=== PATIENT | female | born 1960 | race American Indian/Alaskan Native ===

== ENCOUNTER 2017-10-01 23:27 | Emergency (ER) | payer BC ==
--- NOTE | 2017-10-02 00:36 | XRay Report ---
FINAL REPORT PROCEDURE: XR NECK SOFT TISSUE TECHNIQUE: Soft tissue neck radiographs, 2 views, including AP and lateral. CPT 59023 HISTORY: Pain. Fishbone lodged in throat. COMPARISON: No prior studies are available for comparison. FINDINGS: Bone mineralization: Normal. Multilevel degenerative changes of the spine. Alignment: Normal. Soft tissues: Epiglottis and hypopharyngeal soft tissues normal. Foreign bodies: None. IMPRESSION: No radiographic evidence of acute abnormality. No radiopaque foreign body. Please note some foreign bodies are not radiopaque and therefore not visualized on radiograph.
--- NOTE | 2017-10-02 09:24 | Emergency Department Report ---
- General Chief complaint: Skin/Abscess/Foreign Body Stated complaint: FISH BONE IN THROAT Time Seen by Provider: 10/02/17 09:09 Source: patient Mode of arrival: Ambulatory Limitations: No Limitations - History of Present Illness Initial comments: Ms Sal is a 57 year-old woman without PMH who presents after swallowing fish bone. Last night eating seabass around 11pm. Accidentally swallowed a bone. Able to swallow, but has pain. No vomiting. No difficulty speaking. No other complaints. No home meds. No allergies. MD complaint: foreign body Onset/Timin,300 -: Last night Severity: Unable to Determine Consistency: other (with swallowing) Improves with: none Context: other (ate fish) Associated symptoms: denies other symptoms Treatments Prior to Arrival: none - Related Data Allergies Allergy/AdvReac Type Severity Reaction Status Date / Time No Known Allergies Allergy Unverified 10/01/17 23:43 Abscess Boil HPI - HPI Chief Complaint: Skin/Abscess/Foreign Body Stated Complaint: FISH BONE IN THROAT Time Seen by Provider: 10/02/17 09:09 Allergies/Adverse Reactions: Allergies Allergy/AdvReac Type Severity Reaction Status Date / Time No Known Allergies Allergy Unverified 10/01/17 23:43 ED Review of Systems ROS: Stated complaint: FISH BONE IN THROAT Other details as noted in HPI Comment: All other systems reviewed and negative ED Past Medical Hx - Past Medical History Previous Medical History?: No - Surgical History Past Surgical History?: Yes Additional Surgical History: hysterectomy - Social History Smoking Status: Never Smoker Substance Use Type: Alcohol ED Physical Exam - General Limitations: No Limitations General appearance: alert, in no apparent distress - Head Head exam: Present: atraumatic, normocephalic - Eye Eye exam: Present: normal appearance, EOMI. Absent: scleral icterus, conjunctival injection - ENT ENT exam: Present: normal exam, normal orophraynx, mucous membranes moist - Neck Neck exam: Present: normal inspection, other (able to swallow). Absent: tenderness, meningismus, lymphadenopathy, thyromegaly - Respiratory Respiratory exam: Present: normal lung sounds bilaterally. Absent: respiratory distress, wheezes, rales, stridor - Cardiovascular Cardiovascular Exam: Present: regular rate, normal rhythm - Neurological Exam Neurological exam: Present: alert, oriented X3 - Psychiatric Psychiatric exam: Present: normal affect, normal mood - Skin Skin exam: Present: warm, dry, intact ED Course Vital Signs 10/01/17 23:40 Temperature 98.2 F Pulse Rate 76 Respiratory 18 Rate Blood Pressure 149/103 O2 Sat by Pulse 100 Oximetry ED Medical Decision Making - Radiology Data Radiology results: report reviewed PROCEDURE: XR NECK SOFT TISSUE TECHNIQUE: Soft tissue neck radiographs, 2 views, including AP and lateral. CPT 15881 HISTORY: Pain. Fishbone lodged in throat. COMPARISON: No prior studies are available for comparison. FINDINGS: Bone mineralization: Normal. Multilevel degenerative changes of the spine. Alignment: Normal. Soft tissues: Epiglottis and hypopharyngeal soft tissues normal. Foreign bodies: None. IMPRESSION: No radiographic evidence of acute abnormality. No radiopaque foreign body. Please note some foreign bodies are not radiopaque and therefore not visualized on radiograph. - Medical Decision Making Ms sal is a 57 year-old woman without PMH who presents with dysphasia after swallowing fish bone last night around 11pm. able to swallow. no foreign body visualized on direct exam. reports that it feels lower in her throat. No vomiting. Able to swallow solids and liquids. XR without radiopaque FB. Will DC to home with strict return precautions and ENT f/u as needed. i suspect this is abrasion vs retained fb. clinically able to swallow. Safe for dc. Critical care attestation.: If time is entered above; I have spent that time in minutes in the direct care of this critically ill patient, excluding procedure time. ED Disposition Clinical Impression: Swallowed foreign body Qualifiers: Encounter type: initial encounter Qualified Code(s): T18.9XXA - Foreign body of alimentary tract, part unspecified, initial encounter Disposition: DC-01 TO HOME OR SELFCARE Is pt being admited?: No Does the pt Need Aspirin: No Condition: Stable Instructions: Foreign Body Ingestion (ED), Foreign Body in Pharynx (ED) Referrals: PRIMARY CARE, [Primary Care Provider] - 3-5 Days
[2017-10-02 09:47] VITALS: BP 145/97
== END 2017-10-02 09:48 | disposition home or self-care (01) ==
LOC: ED 23:27
DX: T17.228A Food in pharynx causing other injury, initial encounter (principal); R47.02 Dysphasia; Z90.710 Acquired absence of both cervix and uterus; X58.XXXA Exposure to other specified factors, initial encounter; Y93.89 Activity, other specified; Y92.89 Other specified places as the place of occurrence of the external cause; Y99.8 Other external cause status
CPT/HCPCS: 70360; 99283